=== PATIENT | male | born 1975 | race Caucasian/White ===

== ENCOUNTER 2019-03-10 16:47 | Emergency (ER) | payer MEDICARE, MEDICAID, SELFPAY ==
[2019-03-10 16:55] VITALS: BP 134/82; PULSE 121; RESP 20; TEMP 36.7; O2SAT 98; BMI 29.2
[2019-03-10] MEDS: SODIUM CHLORIDE 0.9% 1,000 ML 1000 ML IV ×2 (17:06→18:11)
--- NOTE | 2019-03-10 17:31 | PC.NURSE ---
Pt states he hasnt taken valium for 2 days because they turn to dust in my pocket and I dont want to take them not knowing how much Im taking.
--- NOTE | 2019-03-10 17:33 | ED.SEIZURE ---
HPI - Seizure General Chief Complaint: Seizure Stated Complaint: Seizure Time Seen by Provider: 03/10/19 16:53 Source: patient and EMS Mode of arrival: EMS Limitations: no limitations History of Present Illness HPI Narrative: Patient is a 43-year-old male who presents with new onset seizure. He was at work when he had seizure activity witnessed by coworkers. EMS found him postictal confused on a log he bit his tongue no urinary incontinence. He has a history of anxiety for which he takes diazepam 7.1 mg 3 times a day. He states that he has missed the last 2 days because he brings his medication to work within in his pocket with a disintegrate into powder and then he does not take it because he is not sure how much she is taking. He also has not eaten all day today except for coffee with cream and sugar he says this is typical for him. He has been sleeping. He denies adamantly any alcohol use. He is on Suboxone because he had opiate addiction 3 and half years ago and has been clean since then. MD complaint: seizure Description of Episode: loss of consciousness and tonic-clonic movement -: minutes(s) Witnessed: yes - by bystander Trauma: No Seizure History: none Place: work Possible Precipitating Event: medication Related Data Home Medications Medication Instructions Recorded Confirmed buprenorphine-naloxone 1.75 film SUBLINGUAL DAILY 03/10/19 03/10/19 diazepam 7.5 mg PO TID PRN 03/10/19 03/10/19 mirtazapine 30 mg PO DAILY 03/10/19 03/10/19 risperidone 0.25 mg PO DAILY 03/10/19 03/10/19 Previous Rx's Medication Instructions Recorded diazepam 7.5 mg PO TID #10 tab 03/10/19 Allergies Allergy/AdvReac Type Severity Reaction Status Date / Time No Known Drug Allergies Allergy Verified 03/10/19 17:06 Review of Systems Review of Systems ROS Unobtainable: All systems reviewed & are unremarkable except as noted in HPI and below Constitutional Denies chills, Denies fever(s), Denies lethargy and Denies weakness Eyes Denies change in vision, Denies eye discharge, Denies irritation and Denies loss of vision Cardiovascular Denies chest pain, Denies irregular heart rhythm, Denies lightheadedness, Denies palpitations, Denies dyspnea, Denies dyspnea on exertion and Denies orthopnea Respiratory Denies cough, Denies dyspnea, Denies dyspnea on exertion and Denies wheezing Gastrointestinal Gastrointestinal: Denies abdominal pain, Denies change in bowel habits, Denies diarrhea, Denies nausea and Denies vomiting Genitourinary Denies hematuria, Denies flank pain, Denies urinary incontinence and Denies urinary urgency Musculoskeletal Denies back pain, Denies muscle weakness, Denies numbness and Denies tingling Integumentary/Breasts Denies pruritus, Denies erythema, Denies rash and Denies wounds Neurologic Reports as per HPI, Reports confusion, Denies loss of vision, Denies numbness, Reports convulsions, Reports seizure-like activity, Denies tingling and Denies weakness Psychiatric Reports confusion Endocrine Denies palpitations Allergic/Immunologic Denies wheezing [facility] Medical History Anxiety (Acute) Social History (Updated 03/10/19 @ 17:53 by Carly Hart DO) Smoking Status: Current every day smoker alcohol intake: never substance use type: opiates Social History Smoking Status: Current every day smoker alcohol intake: never substance use type: opiates Exam Initial Vital Signs Initial Vital Signs: Vital Signs Temperature 98.1 F 03/10/19 16:55 Pulse Rate 121 H 03/10/19 16:55 Respiratory Rate 20 03/10/19 16:55 Blood Pressure 134/82 03/10/19 16:55 Pulse Oximetry 98 03/10/19 16:55 GENERAL: Alert male and in no acute distress. HEENT: Head atraumatic no abrasions no contused,EOMI, pupils reactive, no nystagmus, patient did bite tongue on left side CARDIOVASCULAR: Regular rate and rhythm without murmurs, rubs or gallops. RESPIRATORY: Breath sounds equal bilaterally, no wheezes rales or rhonchi. ABDOMEN: Soft, nontender. Normoactive bowel sounds all 4 quadrants. No guarding or rebound. BACK: No sign of trauma EXTREMITIES: Normal range of motion, no clubbing or edema. Neurovascularly intact NEUROLOGICAL: Alert and oriented x4.Normal gait and speech. Cranial nerves II through XII grossly intact. merchant seaman strength equal bilaterally able to push and pull equally lower extremity strength equal SKIN: Warm, dry, no laceration, no petechiae, no rashes or lesions. Course Orders Ordered: Discontinued Medications Diazepam (Valium) 5 mg PO NOW ONE Stop: 03/10/19 17:40 Last Admin: 03/10/19 17:41 Dose: 5 mg Sodium Chloride (Normal Saline 0.9%) 1,000 mls @ 1,000 mls/hr IV CONT FAWAD Last Infusion: 03/10/19 18:06 Dose: 1,000 mls/hr Admin: 03/10/19 17:06 Dose: 1,000 mls/hr Sodium Chloride (Normal Saline 0.9%) 1,000 mls @ 1,000 mls/hr IV BOLUS ONE Stop: 03/10/19 18:46 Last Infusion: 03/10/19 19:20 Dose: 0 mls/hr Admin: 03/10/19 18:11 Dose: 1,000 mls/hr Vital Signs - 8 hr 03/10/19 16:55 Temperature 98.1 F Pulse Rate 121 H Respiratory Rate 20 Blood Pressure 134/82 Pulse Oximetry 98 MDM - Seizure Lab Data Attestation: I reviewed the patient's lab results. Result diagrams: 03/10/19 18:10 03/10/19 17:15 Lab Results 03/10/19 03/10/19 03/10/19 Range/Units 17:15 18:10 18:25 WBC 14.1 H (4.5-11.0) X10^3/uL RBC 4.81 (4.5-5.9) X10^6/uL Hgb 14.3 (13.5-17.5) g/dL Hct 42.5 (41-53) % MCV 88.5 (80-100) fL MCH 29.8 (26-34) PG MCHC 33.6 (30-36) % RDW 13.2 (11.6-14.8) % Plt Count 235 (150-400) X10^3/uL Neut % (Auto) 80.7 H (50-75) % Lymph % (Auto) 13.4 L (25-40) % [place] % (Auto) 4.8 (3-14) % Eos % (Auto) 0.8 L (2-4) % Baso % (Auto) 0.3 (0-2) % Neut # (Auto) 75584 H (1861-8243) /uL Lymph # (Auto) 1900 (7287-4423) /uL [place] # (Auto) 700 (0-900) /uL Eos # (Auto) 100 (0-450) /uL Baso # (Auto) 0 (0-100) /uL Sodium 137 (137-145) mmol/L Potassium 4.2 (3.4-5.1) mmol/L Chloride 102 (98-107) mmol/L Carbon Dioxide 17 L (22-32) mmol/L BUN 20 (9-20) mg/dL Creatinine 1.00 (0.66-1.25) mg/dL Estimated GFR > 60.0 (>60) mL/min BUN/Creatinine Ratio 20.0 (6-22) Glucose 98 (70-100) mg/dL Calcium 9.2 (8.4-10.2) mg/dL Magnesium 2.3 (1.6-2.3) mg/dL Urine Opiates Screen Negative (Negative) Ur Oxycodone Screen Negative (Negative) Urine Methadone Screen Negative (Negative) Ur Barbiturates Screen Negative (Negative) U Tricyclic Antidepress Negative (Negative) Ur Phencyclidine Scrn Negative (Negative) Ur Amphetamines Screen Negative (Negative) U Methamphetamines Scrn Negative (Negative) Ur MDMA Scrn (Ecstasy) Negative (Negative) U Benzodiazepines Scrn Positive H (Negative) Urine Cocaine Screen Negative (Negative) U Marijuana (THC) Screen Positive H (Negative) Urine Dip Bedside Urine Glucose Negative Bedside Urine Bilirubin - Negative Bedside Urine Ketone - Negative Urine Specific [place] 1.020 Bedside Urine Occult Blood +/- Bedside Urine pH 5.5 Bedside Urine Protein +/- 15 Bedside Urine Urobilinogen - Negative Bedside Urine Nitrite - Negative Bedside Urine Leukocytes - Negative Esterase MDM Narrative Medical decision making narrative: Patient likely has seizure from benzodiazepine withdrawal in stopping abruptly 2 days ago. He states that he is supposed to get a new prescription filled on Thursday. We talked about ways how to take his medication and not have a disintegrate in his pocket. He does not drive but is aware that he cannot drive for 6 months to 1 year and till cleared by a physician. Discharge Plan Departure Patient Disposition: Home Clinical Impression: New onset seizure, Generalized seizure Discharge Date/Time: 03/10/19 19:47 Interventions: ED Discharge Assessment Last Done: 03/10/19 19:47 Instructions: DI for Seizure Disorder -- Adult Activity Restrictions/Additional Instructions: YOU CANNOT DRIVE FOR 6 MONTHS UNTIL CLEARED BY PHYSICIAN *You have been diagnosed with seizure *What to do: Your seizure today is likely from not taking diazepam for 2 days *Continue to take medications as directed Diazepam 7.5 mg 3 times a day *Follow up with your primary care provider in 2-3 days *Return to ER if you should have recurrent seizure, weakness or any new, worsening or concerning symptoms Prescriptions: New diazepam 5 mg tablet 7.5 mg PO TID Qty: 10 RF: 0 No Action risperidone 0.25 mg tablet 0.25 mg PO DAILY RF: 0 mirtazapine 30 mg tablet 30 mg PO DAILY RF: 0 diazepam 5 mg tablet 7.5 mg PO TID PRN (Reason: Muscle Spasm) RF: 0 buprenorphine-naloxone 8-2 mg film 1.75 film Sublingual DAILY RF: 0
[2019-03-10 17:39] LABS: Blood Urea Nitrogen 20 mg/dL (9-20); Calcium 9.2 mg/dL (8.4-10.2); Carbon Dioxide 17 mmol/L (22-32); Chloride 102 mmol/L (98-107); Estimated Glomerular Filt Rate > 60.0 mL/min (>60); Glucose 98 mg/dL (70-100); HEMOLYSIS 32 (0-50); Magnesium 2.3 mg/dL (1.6-2.3); Potassium 4.2 mmol/L (3.4-5.1); Sodium 137 mmol/L (137-145)
[2019-03-10] MEDS: diazePAM 5 MG TABLET PO (17:41)
[2019-03-10 18:00] VITALS: BP 120/75; PULSE 87; RESP 19; O2SAT 96
[2019-03-10 18:24] LABS: Add Manual Diff / Slide Review NO; Basophils Absolute Auto 0 /uL (0-100); Basophils Percent Auto 0.3 % (0-2); Eosinophils Absolute Auto 100 /uL (0-450); Eosinophils Percent Auto 0.8 % (2-4); Hematocrit 42.5 % (41-53); Hemoglobin 14.3 g/dL (13.5-17.5); Lymphocytes Absolute Auto 1900 /uL (1100-4500); Lymphocytes Percent Auto 13.4 % (25-40); Mean Corpuscular HGB Conc 33.6 % (30-36); Mean Corpuscular Hemoglobin 29.8 PG (26-34); Mean Corpuscular Volume 88.5 fL (80-100); Monocytes Absolute Auto 700 /uL (0-900); Monocytes Percent Auto 4.8 % (3-14); Neutrophils Absolute Auto 11400 /uL (1500-7000); Neutrophils Percent Auto 80.7 % (50-75); Platelet Count 235 X10^3/uL (150-400); Red Blood Cell Count 4.81 X10^6/uL (4.5-5.9); Red Cell Distribution Width 13.2 % (11.6-14.8); White Blood Cell Count 14.1 X10^3/uL (4.5-11.0)
[2019-03-10 18:41] LABS: Urine Cocaine Negative (Negative); Urine Tetrahydrocannabinol Positive (Negative)
[2019-03-10 18:42] LABS: Urine Amphetamines Negative (Negative); Urine Barbiturates Negative (Negative); Urine Benzodiazepines Positive (Negative); Urine MDMA Negative (Negative); Urine Methadone Negative (Negative); Urine Methamphetamines Negative (Negative); Urine Morphine/Opi cutoff 2000 Negative (Negative); Urine Oxycodone Negative (Negative); Urine Phencyclidine Negative (Negative); Urine Tricyclic Antidepressant Negative (Negative)
[2019-03-10 19:47] VITALS: BP 127/76; PULSE 78; RESP 14; TEMP 37.1; O2SAT 95
== END 2019-03-10 19:47 | disposition home or self-care (01) ==
PROVIDERS: Emergency Provider Emergency Medicine
DX: R56.9 Unspecified convulsions (principal); R41.0 Disorientation, unspecified; S01.552A Open bite of oral cavity, initial encounter
CPT/HCPCS: 36415; 80048; 80305; 81003; 83735; 85025; 96360; 96361; 99283; 99285